=== PATIENT | female | born 1955 | race Caucasian/White ===

== ENCOUNTER → 2021-01-26 | Outpatient (CLI) | payer OTHER | LOC: COL.LAB 16:45 | DX: R05 Cough (principal) ==

== ENCOUNTER → 2021-03-03 | Outpatient (CLI) | payer BC | LOC: COL.RAD 07:13 | DX: K59.09 Other constipation (principal); R19.7 Diarrhea, unspecified; R11.2 Nausea with vomiting, unspecified; R14.0 Abdominal distension (gaseous); R68.81 Early satiety | CPT/HCPCS: A9541 ==

== ENCOUNTER → 2021-11-08 | Outpatient (CLI) | payer OTHER, BC | LOC: MC.RAD 15:26 | DX: Z12.31 Encounter for screening mammogram for malignant neoplasm of breast (principal) ==

== ENCOUNTER → 2023-04-11 | Outpatient (CLI) | payer MEDICARE ==
[~2023-04-11] MED LIST: PERCOCET 325 MG1 TA2 PO; ZOFRAN ODT4 MG PO
== END ==
LOC: CANSCHCLI → MC.RAD 14:01
DX: Z12.31 Encounter for screening mammogram for malignant neoplasm of breast (principal)